=== PATIENT | male | born 1975 | race Caucasian/White ===

== ENCOUNTER 2017-01-25 19:05 | Emergency (ER) | payer OTHER ==
[2017-01-25] MEDS ORDERED: XYLOCAINE-MPF 1% 5 ML ONE (19:31)
--- NOTE | 2017-01-25 19:38 | PROVIDER DOCUMENTATION ---
HPI-General Adult - General Chief Complaint: Extremity Injury Stated Complaint: HAND INJURY Time Seen by Provider: 01/25/17 19:32 Source: patient Allergies/Adverse Reactions: Patient Allergies Allergy/AdvReac Type Severity Reaction Status Date / Time Penicillins Allergy Unknown Verified 01/25/17 19:21 Home Medications: Home Medication List Medication Instructions Recorded Confirmed Last Taken Type ATORVAstatin [Lipitor] 80 mg PO DAILY 01/25/17 01/25/17 Unknown History Aspirin 81 mg PO DAILY 01/25/17 01/25/17 Unknown History Carvedilol 6.25 mg PO BID 01/25/17 01/25/17 Unknown History Cetirizine HCl [Zyrtec] 10 mg PO DAILY 01/25/17 01/25/17 Unknown History Levothyroxine Sodium [Synthroid] 175 mcg PO DAILY 01/25/17 01/25/17 Unknown History Multivitamin [Multi-Day Vitamins] 1 tab PO DAILY 01/25/17 01/25/17 Unknown History Omeprazole 20 mg PO BID 01/25/17 01/25/17 Unknown History Ramipril 5 mg PO DAILY 01/25/17 01/25/17 Unknown History Sulfamethoxazole/Trimethoprim 2 each PO BID #40 tablet 01/25/17 Unknown Rx [Bactrim Ds Tablet] - History of Present Illness -Gen Adult Nature of Presenting Problems: 41 year old male presents to the ER with complaint of laceration to right hand. Pt states he was handling a gun and cut the top of hand. Laceration is 2 cm in size. Location of Pain/Injury: reports: hand(s) (right) Onset/Duration: reports: just prior to arrival Timing: reports: still present Review of Systems - Adult - REVIEW OF SYSTEMS - ADULT Constitutional: denies: chills, fever Eyes: reports: no symptoms reported Ears, Nose, Mouth & Throat: reports: no symptoms reported Cardiovascular: reports: no symptoms reported Respiratory: reports: no symptoms reported Gastrointestinal: reports: no symptoms reported Genitourinary: reports: no symptoms reported Musculoskeletal: reports: no symptoms reported Integumentary: reports: other (laceration to right hand) Neurological: reports: no symptoms reported Psychiatric: reports: no symptoms reported Endocrine: reports: no symptoms reported Hematologic/Lymphatic: reports: no symptoms reported Allergic/Immunologic: reports: no symptoms reported All Other Systems: Reviewed and Negative Past History - Adult - PAST MEDICAL HISTORY-ADULT Review of Records: reports: Nursing Assessment Review, Medications Reviewed - IMMUNIZATION STATUS Childhood Immunizations: See Nurse Assessment Flu Vaccine: See Nurse Assessment Physical Exam-General - CONSTITUTIONAL General Appearance: alert, no apparent distress - EYES Eyes: PERRL/EOMI, pink conjunctivae - HEAD, EARS, NOSE, MOUTH & THROAT HENMT: moist mucous membranes, normal ENT inspection - NECK Neck: supple, normal inspection - RESPIRATORY Respiratory: lungs clear, normal breath sounds - CARDIOVASCULAR Cardiovascular: normal peripheral pulses, regular rate, rhythm - MUSCULOSKELETAL Back Exam: no CVA tenderness, no vertebral tenderness Extremity: non-tender, normal gait - SKIN Integumentary: warm/dry, laceration(s) (right hand) - NEUROLOGIC Neurologic: grossly normal, no motor/sensory deficits - PSYCHIATRIC Psych/Mental Status: normal mood/affect, normal thought content, normal thought process, oriented x 3 Procedures - LACERATION/WOUND REPAIR/FB Right Upper Hand Wound's Depth, Shape: superficial Wound Explored/Foreign Body: clean Prepped with: Betadine Anesthetic: 1%, Lidocaine/Xylocaine Volume of Anesthetic (ml's): 5 Wound Debrided: minimal Wound Repaired with: Sutures Suture Size/Type: 4.0 Number of Sutures: 2 Departure - Departure Time of Disposition Order: 20:03 DIAGNOSIS: Laceration Disposition: HOME 01 Certified Medical Emergency: Emergent Condition: Stable Additional Instructions: ED Follow Up Instructions: You have been treated by a care provider in the Emergency Department. These instructions are being provided to you so you can have an understanding of how to care for yourself upon discharge. Upon discharge from the Emergency Department, you are responsible for making arrangements for follow-up care by a physician of your choice. Take all prescribed medications as directed. Return to the Emergency Department immediately for any new or worsening symptoms. You may call the Physician Referral phone number at [phone] to obtain a list of Physicians who are taking new patients. Prescriptions: Sulfamethoxazole/Trimethoprim [Bactrim Ds Tablet] 2 each PO BID #40 tablet Referrals: Awa Lara MD [STAFF PHYSICIAN] - None,PCP [Primary Care Provider] - Forms: Return to School/Parent Work Instructions: Laceration Care, Adult, [id number] Attestation - Scribe Verification/Attestation Scribe:: Billie Bob Acting as Scribe for:: Moris Barkley Scribe documention review:: This chart was documented by a scribe and accurately reflects the service the provider performed and the decisions made by the provider.
[2017-01-25 19:39] VITALS: BP 134/83
== END 2017-01-25 20:02 | disposition home or self-care (01) ==
LOC: P.ED 19:05
DX: S61.411A Laceration without foreign body of right hand, initial encounter (principal); Z79.82 Long term (current) use of aspirin; Z79.899 Other long term (current) drug therapy; W45.8XXA Other foreign body or object entering through skin, initial encounter
CPT/HCPCS: 99282